=== PATIENT | female | born 1975 | race American Indian/Alaskan Native ===

== ENCOUNTER 2020-12-29 17:20 | Emergency (ER) | payer SELFPAY ==
[2020-12-29 17:43] VITALS: BP 132/88
--- NOTE | 2020-12-29 17:50 | Emergency Department Report ---
ED Female HPI - General Chief complaint: Urogenital-Female Stated complaint: UTI Source: patient Mode of arrival: Ambulatory Limitations: No Limitations - History of Present Illness Initial comments: Patient is a 45-year-old -[place] female with a history of asthma who presents to the ED with complaint of acute onset persistent dysuria, urinary frequency and urgency, suprapubic pressure and low back pain for the last 1 week, worse in the last 2 days. Patient states that she had similar symptoms 6 months ago and was diagnosed with acute urinary tract infection and therefore she believes that she may be coming down with another bout of UTI. Patient denies fever, chills, nausea, vomiting, abdominal pain, vaginal bleeding, vaginal discharge, dyspareunia, dizziness, syncope, cough, sore throat, chest pain and shortness of breath. MD Complaint: dysuria, other (urinary urgency and frequency; low back pain) -: Sudden, week(s) (1) Location: suprapubic, other (vaginal) Radiation: suprapubic Severity: moderate Severity scale (0 -10): 6 Quality: sharp, burning Consistency: constant Improves with: none Worsens with: urination Are you Now?: No Associated Symptoms: denies other symptoms, abdominal pain (suprapubic pressure), dysuria, other (Urinary frequency and urgency, low back pain). denies: vaginal discharge, vaginal bleeding, nausea/vomiting, fever/chills, headaches, loss of appetite, hematuria, rash, seizure, shortness of breath, syncope, weakness - Related Data Sexually active: Yes Previous Rx's Medication Instructions Recorded Last Taken Type ALBUTEROL NEB's [Proventil 0.083% 2.5 mg IH QID PRN #75 ml 12/15/13 Unknown Rx NEBS] Acetaminophen/Codeine [Tylenol #3] 1 tab PO Q6H PRN #15 tab 04/09/15 Unknown Rx Sulfamethoxazole/Trimethoprim 1 each PO BID #20 tablet 04/09/15 Unknown Rx [Bactrim Ds] Phenazopyridine [Pyridium] 200 mg PO BID #18 tab 12/29/20 Unknown Rx cephALEXin [Keflex] 500 mg PO Q12HR #20 cap 12/29/20 Unknown Rx Allergies Allergy/AdvReac Type Severity Reaction Status Date / Time No Known Allergies Allergy Verified 12/29/20 17:40 ED Review of Systems ROS: Stated complaint: UTI Other details as noted in HPI Constitutional: denies: chills, fever Eyes: denies: eye pain, eye discharge, vision change ENT: denies: ear pain, throat pain Respiratory: denies: cough, shortness of breath, wheezing Cardiovascular: denies: chest pain, palpitations Endocrine: no symptoms reported Gastrointestinal: abdominal pain (Suprapubic pressure). denies: nausea, diarrhea Genitourinary: urgency, dysuria, frequency. denies: discharge Musculoskeletal: back pain (Low back pain). denies: joint swelling, arthralgia Skin: denies: rash, lesions Neurological: denies: headache, weakness, paresthesias Psychiatric: denies: anxiety, depression Hematological/Lymphatic: denies: easy bleeding, easy bruising ED Past Medical Hx - Past Medical History Hx Asthma: Yes - Surgical History Additional Surgical History: - Social History Smoking Status: Former Smoker Substance Use Type: Alcohol - Medications Home Medications: Home Medications Medication Instructions Recorded Confirmed Last Taken Type ALBUTEROL NEB's [Proventil 0.083% 2.5 mg IH QID PRN #75 ml 12/15/13 04/09/15 Unknown Rx NEBS] Acetaminophen/Codeine [Tylenol #3] 1 tab PO Q6H PRN #15 tab 04/09/15 Unknown Rx Sulfamethoxazole/Trimethoprim 1 each PO BID #20 tablet 04/09/15 Unknown Rx [Bactrim Ds] Phenazopyridine [Pyridium] 200 mg PO BID #18 tab 12/29/20 Unknown Rx cephALEXin [Keflex] 500 mg PO Q12HR #20 cap 12/29/20 Unknown Rx ED Physical Exam - General Limitations: No Limitations General appearance: alert, in no apparent distress - Head Head exam: Present: atraumatic, normocephalic, normal inspection - Eye Eye exam: Present: normal appearance, PERRL, EOMI Pupils: Present: normal accommodation - ENT ENT exam: Present: normal exam, normal orophraynx, mucous membranes moist, TM's normal bilaterally, normal external ear exam - Neck Neck exam: Present: normal inspection, full ROM - Respiratory Respiratory exam: Present: normal lung sounds bilaterally. Absent: respiratory distress, wheezes, rales, rhonchi, chest wall tenderness, accessory muscle use, decreased breath sounds - Cardiovascular Cardiovascular Exam: Present: regular rate, normal rhythm, normal heart sounds. Absent: systolic murmur, diastolic murmur, rubs, gallop - GI/Abdominal GI/Abdominal exam: Present: soft, normal bowel sounds. Absent: tenderness, guarding, rebound, hyperactive bowel sounds, hypoactive bowel sounds, organomegaly, mass - Extremities Exam Extremities exam: Present: normal inspection, full ROM, normal capillary refill - Back Exam Back exam: Present: normal inspection, full ROM. Absent: tenderness, CVA tenderness (R), CVA tenderness (L), muscle spasm, paraspinal tenderness, vertebral tenderness - Neurological Exam Neurological exam: Present: alert, oriented X3, CN II-XII intact, normal gait, reflexes normal - Psychiatric Psychiatric exam: Present: normal affect, normal mood - Skin Skin exam: Present: warm, dry, intact, normal color. Absent: rash ED Course Vital Signs 12/29/20 17:41 Temperature 98.2 F Pulse Rate 90 Respiratory 18 Rate Blood Pressure 132/88 O2 Sat by Pulse 96 Oximetry ED Medical Decision Making - Medical Decision Making This is a 45-year-old -[place] female with a history of asthma who presents to the ED with complaint of acute onset persistent dysuria, urinary frequency and urgency, suprapubic pressure and low back pain for the last 1 week, worse in the last 2 days. Patient states that she had similar symptoms 6 months ago and was diagnosed with acute urinary tract infection and therefore she believes that she may be coming down with another bout of UTI. In the ED, patient is alert and oriented x3 and is not in distress. Urinalysis is unremarkable. Patient is however symptomatic and therefore her symptoms are likely due to bladder spasms. Patient will discharge home and advised to follow-up with her primary care physician in 7 to 10 days for reevaluation. Patient was advised return to the ED immediately if symptoms get worse. - Differential Diagnosis UTI; muscle spasm; muscle strain; STD Critical care attestation.: If time is entered above; I have spent that time in minutes in the direct care of this critically ill patient, excluding procedure time. ED Disposition Clinical Impression: Acute urinary tract infection, Dysuria, Spasm of bladder Disposition: TO HOME OR SELFCARE Is pt being admited?: No Does the pt Need Aspirin: No Condition: Stable Instructions: Urinary Tract Infection, Adult, [id number], Dysuria Additional Instructions: Lab test results were unremarkable but because you are symptomatic, will be discharged home on medications for suspected UTI. Therefore take medications as until finished, follow-up with your primary care physician in 5 to 7 days for reevaluation. Return to the ED immediately if symptoms get worse. Prescriptions: cephALEXin [Keflex] 500 mg PO Q12HR #20 cap Phenazopyridine [Pyridium] 200 mg PO BID #18 tab Referrals: [facility] [Provider Group] - 7-10 days Time of Disposition: 17:52 Print Language: IRISH
[2020-12-29 18:31] LABS: HCG Qualitative,Urine Negative (Negative)
[2020-12-29 18:35] LABS: Bilirubin,Urine NEG (Negative); Blood,Urine NEG (Negative); Color,Urine Yellow (Yellow); Mucus,Urine FEW /HPF; Protein,Urine <15 mg/dL mg/dL (Negative); RBC,Urine < 1.0 /HPF (0.0-6.0); Urobilinogen,Urine < 2.0 mg/dL (<2.0); WBC,Urine < 1.0 /HPF (0.0-6.0)
== END 2020-12-29 20:10 | disposition home or self-care (01) ==
LOC: ED 17:20
DX: N39.0 Urinary tract infection, site not specified (principal); N32.89 Other specified disorders of bladder; J45.909 Unspecified asthma, uncomplicated; Z87.891 Personal history of nicotine dependence; Z79.899 Other long term (current) drug therapy
CPT/HCPCS: 81001; 81025; 99283

== ENCOUNTER 2021-05-31 23:00 | Emergency (ER) | payer SELFPAY ==
[2021-05-31 23:37] VITALS: BP 153/88
[2021-05-31 23:53] LABS: Bilirubin,Urine NEG (Negative); Blood,Urine NEG (Negative); Color,Urine Yellow (Yellow); Mucus,Urine FEW /HPF; Protein,Urine <15 mg/dL mg/dL (Negative); Urobilinogen,Urine < 2.0 mg/dL (<2.0); WBC,Urine < 1.0 /HPF (0.0-6.0)
--- NOTE | 2021-06-01 01:41 | Emergency Department Report ---
ED Female HPI - General Chief complaint: Urogenital-Female Stated complaint: LOWER BACK PAIN/PAINFUL URINATION Time Seen by Provider: 06/01/21 01:31 Source: patient Mode of arrival: Ambulatory Limitations: No Limitations - History of Present Illness Initial comments: 45-year-old -[place] female presents to the emergency room feeling that she has a urinary tract infection. Patient states her symptoms are the same that she had back in December. Patient states that she has frequency lower back pain that throbs. She states that she has throbbing down in her vaginal area. She denies any vaginal bleeding. She is does states she has clear discharge which is normal for her. She denies any fever chills no nausea no vomiting. MD Complaint: dysuria Onset/Timin -: days(s) Location: perineum Radiation: non-radiating Severity scale (0 -10): 0 Quality: burning Consistency: intermittent - Related Data Previous Rx's Medication Instructions Recorded Last Taken Type ALBUTEROL NEB's [Proventil 0.083% 2.5 mg IH QID PRN #75 ml 12/15/13 Unknown Rx NEBS] Acetaminophen/Codeine [Tylenol #3] 1 tab PO Q6H PRN #15 tab 04/09/15 Unknown Rx Sulfamethoxazole/Trimethoprim 1 each PO BID #20 tablet 04/09/15 Unknown Rx [Bactrim Ds] Phenazopyridine [Pyridium] 200 mg PO BID #18 tab 12/29/20 Unknown Rx cephALEXin [Keflex] 500 mg PO Q12HR #20 cap 12/29/20 Unknown Rx Allergies Allergy/AdvReac Type Severity Reaction Status Date / Time No Known Allergies Allergy Verified 12/29/20 17:40 ED Review of Systems ROS: Stated complaint: LOWER BACK PAIN/PAINFUL URINATION Other details as noted in HPI Comment: All other systems reviewed and negative ED Past Medical Hx - Past Medical History Previous Medical History?: Yes Hx Asthma: Yes - Surgical History Past Surgical History?: Yes Additional Surgical History: - Social History Smoking Status: Never Smoker Substance Use Type: None - Medications Home Medications: Home Medications Medication Instructions Recorded Confirmed Last Taken Type ALBUTEROL NEB's [Proventil 0.083% 2.5 mg IH QID PRN #75 ml 12/15/13 04/09/15 Unknown Rx NEBS] Acetaminophen/Codeine [Tylenol #3] 1 tab PO Q6H PRN #15 tab 04/09/15 Unknown Rx Sulfamethoxazole/Trimethoprim 1 each PO BID #20 tablet 04/09/15 Unknown Rx [Bactrim Ds] Phenazopyridine [Pyridium] 200 mg PO BID #18 tab 12/29/20 Unknown Rx cephALEXin [Keflex] 500 mg PO Q12HR #20 cap 12/29/20 Unknown Rx ED Physical Exam - General Limitations: No Limitations General appearance: alert, in no apparent distress - Head Head exam: Present: atraumatic, normocephalic - Eye Eye exam: Present: normal appearance - ENT ENT exam: Present: normal external ear exam - Neck Neck exam: Present: normal inspection, full ROM - Respiratory Respiratory exam: Absent: accessory muscle use - Cardiovascular Cardiovascular Exam: Present: regular rate - GI/Abdominal GI/Abdominal exam: Present: soft. Absent: distended - Extremities Exam Extremities exam: Present: full ROM - Back Exam Back exam: Present: full ROM - Neurological Exam Neurological exam: Present: alert, oriented X3, normal gait - Psychiatric Psychiatric exam: Present: normal affect, normal mood - Skin Skin exam: Present: warm, dry, intact, normal color. Absent: rash ED Course Vital Signs 05/31/21 23:22 Temperature 98.6 F Pulse Rate 92 H Respiratory 16 Rate Blood Pressure 153/88 O2 Sat by Pulse 98 Oximetry ED Medical Decision Making - Medical Decision Making 45-year-old -[place] female presents to the emergency room feeling that she has a urinary tract infection. Patient states her symptoms are the same that she had back in December. Patient states that she has frequency lower back pain that throbs. She states that she has throbbing down in her vaginal area. She denies any vaginal bleeding. She is does states she has clear discharge which is normal for her. She denies any fever chills no nausea no vomiting. Urinalysis is negative for any signs of infection. Encourage patient to increase her fluid intake advance her diet as tolerated follow-up with [facility] Critical care attestation.: If time is entered above; I have spent that time in minutes in the direct care of this critically ill patient, excluding procedure time. ED Disposition Clinical Impression: Dysuria Lower back pain Qualifiers: Chronicity: acute Back pain laterality: unspecified Sciatica presence: without sciatica Qualified Code(s): M54.5 - Low back pain Disposition: DC-01 TO HOME OR SELFCARE Is pt being admited?: No Does the pt Need Aspirin: No Condition: Stable Instructions: Dysuria Additional Instructions: Urinalysis is negative for any urinary tract infection. I recommend to increase her fluid intake and follow-up with an [facility]. Tylenol or ibuprofen as needed for back pain. Referrals: [facility] [Provider Group] - 3-5 Days Forms: Work/School Release Form(ED)
== END 2021-06-01 01:45 | disposition home or self-care (01) ==
LOC: ED 23:00
DX: R30.0 Dysuria (principal); M54.5 Low back pain; J45.909 Unspecified asthma, uncomplicated; Z98.890 Other specified postprocedural states; Z79.899 Other long term (current) drug therapy
CPT/HCPCS: 81001; 99283